=== PATIENT | female | born 1940 | race Caucasian/White ===

== ENCOUNTER → 2017-05-28 | Outpatient (CLI) | payer OTHER | LOC: BMCIMAGING 14:23 | PROVIDERS: ATTEND Emergency Medicine | DX: I83.812 Varicose veins of left lower extremity with pain (principal) ==

== ENCOUNTER 2017-12-23 15:16 | Emergency (ER) | payer OTHER ==
--- NOTE | 2017-12-23 15:21 | EDPHY ---
H & P Time Seen by Provider: 12/23/17 15:20 HPI/ROS: 77-year-old female presents complaining of laceration to her left forehead she states she tripped over her 's wheelchair and hit it on the corner of a buffet. She denies loss of consciousness she denies pain she denies nausea vomiting. No neck pain. No numbness or tingling in her extremities, no loss of bowel or bladder control. Review of systems As per HPI General no fever no chills no weakness HEENT no eye pain no eye discharge. No eye redness, no sore throat Respiratory no cough, no shortness of breath Cardiac no chest pain, no peripheral edema GI no abdominal pain, no diarrhea, no constipation, no nausea, no vomiting no flank pain, no hematuria, no dysuria Musculoskeletal no myalgias, no joint pain Heme no easy bruising, no easy bleeding Endo no polyuria, no polydipsia Skin no rashes, no pruritus Neuro no syncope, no dizziness, no headaches Psych is no suicidal ideation, no homicidal ideation Past Medical/Surgical History: Hypertension Hyperlipidemia Social History: Denies alcohol or drug use Smoking Status: Never smoked Physical Exam: 77-year-old female alert and oriented no acute distress nontoxic appearance, afebrile Normocephalic Forehead with a laceration at left lateral forehead above left eyebrow approximately 4 cm., gaping No bone exposed Extraocular muscles intact, anicteric Neck supple nontender Lungs clear to auscultation bilaterally no respiratory distress Heart regular rate and rhythm Extremities no cyanosis clubbing or edema Neuro alert and oriented, gait intact, no motor or sensory deficit Constitutional: Initial Vital Signs Temperature (C) 37.1 C 12/23/17 15:29 Heart Rate 78 12/23/17 15:29 Respiratory Rate 18 12/23/17 15:29 Blood Pressure 179/111 H 12/23/17 15:29 O2 Sat (%) 89 L 12/23/17 15:29 O2 Delivery Mode Room Air Allergies/Adverse Reactions: No Known Allergies Allergy (Verified 12/23/17 15:28) Home Medications: Medication Instructions Recorded Atorvastatin Calcium 12/23/17 amLODIPine BESYLATE 12/23/17 Medical Decision Making Procedures: Procedure note-laceration The wound was irrigated with copious amounts of saline. Lidocaine 1% was used for local anesthetic. 11 simple interrupted sutures were placed. 5-0 Ethilon was used. Patient tolerated procedure well. ED Course/Re-evaluation: Patient evaluated for forehead laceration, no loss of consciousness Physical exam documented no findings other than 4 cm left forehead laceration. Bleeding well controlled Impression Forehead laceration Plan Sutured repair Given instructions on lacerations and suture care Advised to return in 7 days for suture removal. Differential Diagnosis: Differential diagnosis considered but not limited to Forehead laceration, forehead contusion, intracranial injury Departure - Departure Disposition: Home, Routine, Self-Care Clinical Impression: Laceration of forehead Condition: Good Instructions: Care For Your Stitches (ED), Laceration (ED) Additional Instructions: Return in 7-8 days for suture removal, you have 11 stitches. Referrals: Tabby Magallon MD [Primary Care Provider] - As per Instructions
[2017-12-23 16:54] VITALS: BP 188/104
== END 2017-12-23 16:52 | disposition home or self-care (01) ==
LOC: CED 15:16
PROC: 0HQ1XZZ Repair Face Skin, External Approach (ICD-10-PCS; principal; 2017-12-23)
DX: S01.81XA Laceration without foreign body of other part of head, initial encounter (principal); I10 Essential (primary) hypertension; W01.198A Fall on same level from slipping, tripping and stumbling with subsequent striking against other object, initial encounter

== ENCOUNTER → 2018-08-04 | Outpatient (CLI) | payer OTHER | LOC: CIMAGING 10:20 | PROVIDERS: ATTEND Internal Medicine | DX: I70.8 Atherosclerosis of other arteries (principal); Z87.891 Personal history of nicotine dependence; Z86.73 Personal history of transient ischemic attack (TIA), and cerebral infarction without residual deficits | CPT/HCPCS: 93880-PO ==